=== PATIENT | female | born 1985 | race American Indian/Alaskan Native ===

== ENCOUNTER 2017-04-10 19:57 | Outpatient (CLI) | payer MEDICAID ==
[2017-04-10 20:15] VITALS: BP 119/64
[2017-04-10] MEDS ORDERED: LACTATED RINGERS 500 ML IV ONE (21:33)
== END 2017-04-10 21:35 | disposition home or self-care (01) ==
LOC: TRG 19:57
PROVIDERS: ATTEND Obstetrics & Gynecology
DX: O47.03 False labor before 37 completed weeks of gestation, third trimester (principal); Z3A.28 28 weeks gestation of pregnancy
CPT/HCPCS: 59025

== ENCOUNTER 2017-07-01 18:38 | Inpatient (IN) | payer MEDICAID ==
[2017-07-01] MEDS: LACTATED RINGERS 1,000 ML IV SCH ×2 (20:14→21:24)
[2017-07-01] MEDS ORDERED: POLYCILLIN/NS 2 GM/100 ML 2 GM/100 ML BAG IV ONE ×2 (20:54→21:00)
[2017-07-01] MEDS ORDERED: SUBLIMAZE IV ONE (21:01)
[2017-07-01] MEDS ORDERED: ePHEDrine SULFATE ONE (21:38)
[2017-07-01 21:39] LABS: Hemoglobin 10.6 gm/dl (10.1-14.3); Mean Corpuscular HGB Conc 32 % (30-34); Mean Corpuscular Hemoglobin 26 pg (28-32); Mean Corpuscular Volume 82 fl (79-97); Platelet Count 166 K/mm3 (140-440); Red Blood Count 4.04 M/mm3 (3.65-5.03); Red Cell Distribution Width 16.5 % (13.2-15.2)
[2017-07-01] MEDS ORDERED: PITOCin/NS 20 UNIT/1000ML DRIP 20,000 MILLIUNITS/1,000 ML BAG IV ONE (21:59)
[2017-07-01] MEDS ORDERED: LACTATED RINGERS 1,000 ML IV SCH (22:00)
[2017-07-01] MEDS ORDERED: XYLOCAINE 2% INFILTRATI ONE (22:05)
[2017-07-01] MEDS ORDERED: METHERGINE IM ONE ×2 (22:10→22:18)
--- NOTE | 2017-07-01 22:30 | Procedure Note ---
<JERRI GARBER - Last Filed: 07/01/17 22:25> OB Delivery Note - Delivery Date of Delivery: 07/01/17 Surgeon: JERRI GARBER Estimated blood loss: 300cc - Vaginal Delivery position: OA Delivery induction: none Delivery monitor: external FHT, external uterine Route of delivery: Delivery laceration: 2nd degree Delivery repair: vicryl Anesthesia: local Delivery comments: Called to standby for Dr. Catherine for delivery of this patient. She delivered at 2200 on 07/01/2017 female 7# 3 oz over 2 degree MLL. Meconium noted after SROM. Cord clamped and cut and baby passed to NICU staff over delivery. Repair done by Dr. Catherine. Methergine 0.2mg IM x one dose after delivery of placenta and fundal masssage. Placenta 3VCI. - Infant A at 1 minute: 8 at 5 minutes: 9 (7# 3 oz) <KIM CATHERINE - Last Filed: 07/01/17 22:36> OB Delivery Note - Vaginal Delivery comments: Large clots expressed after repair. IM pitocin given to help slow bleeding. Good hemostasis at the end of the procedure. - Infant A Infant Gender: Female (7 pounds 3 ounces)
[2017-07-01] MEDS: PITOCin/NS 20 UNIT/1000ML DRIP 20 UNITS/1,000 ML BAG IV SCH ×2 (22:33→23:20)
--- NOTE | 2017-07-01 22:50 | History and Physical Report ---
History of Present Illness Date of examination: 07/01/17 Date of admission: 07/01/17 20:52 Chief complaint: I'm in labor History of present illness: Patient is a 31 year old who presents to L&D in active labor. SHe receives care at [facility]. records are not available for review at this time. Past History - Obstetrical History Expected Date of Delivery: 07/03/17 Actual Gestation: 39 Week(s) 5 Day(s) : 5 Para: 1 Number of Living Children: 1 Medications and Allergies Allergies Allergy/AdvReac Type Severity Reaction Status Date / Time No Known Allergies Allergy Unverified 06/01/14 12:22 Home Medications Medication Instructions Recorded Confirmed Last Taken Type Nitrofurantoin [place]/M-Cryst 100 mg PO Q12HR #14 capsule 06/01/14 07/01/17 Unknown Rx [Macrobid] Ondansetron [Zofran Odt] 4 mg PO Q6H #20 tab.rapdis 06/01/14 07/01/17 Unknown Rx Pnv95/Ferrous Fumarate/FA 1 each PO QDAY #30 tablet 06/01/14 07/01/17 Unknown Rx [ Vitamins] Ferrous Sulfate [Feosol 325 MG tab] 325 mg PO BID #60 tablet 07/01/17 Unknown Rx HYDROcodone/ACETAMINOPHEN [[place] 1 each PO Q6H #20 tablet 07/01/17 Unknown Rx 5-325 Tablet] Ibuprofen [Motrin] 600 mg PO Q8H PRN #40 tablet 07/01/17 Unknown Rx Active Meds: Active Medications Lactated Ringer's (Lactated Ringers) 1,000 mls @ 125 mls/hr IV DIRECT MARA Oxytocin/Sodium Chloride (Pitocin/Ns 20 Unit/1000ml Drip) 20 units in 1,000 mls @ 0 mls/hr IV DIRECT MARA Last Admin: 07/01/17 22:33 Dose: 250 mls/hr Review of Systems All systems: negative Genitourinary: pelvic pain, contractions Rectal Exam: deferred - Vital Signs Vital signs: Vital Signs Temp 98.2 F 07/01/17 19:30 Temp Pulse Resp BP Pulse Ox 98.8 F 76 20 121/67 100 07/01/17 21:26 07/01/17 22:43 07/01/17 21:26 07/01/17 22:43 07/01/17 22:41 - Physical Exam Breasts: Positive: deferred Cardiovascular: Regular rate, Normal S1, Normal S2 Lungs: Positive: Clear to auscultation, Normal air movement Abdomen: Positive: normal appearance, soft, normal bowel sounds. Negative: distention, tenderness Genitourinary (Female): Positive: normal external genitalia, normal perenium Vulva: both: normal Vagina: Positive: normal moisture. Negative: discharge Cervix: Negative: lesion, discharge Uterus: Positive: normal size, normal contour Adnexa: both: normal Anus/Rectum: Positive: normal perianal skin, heme negative. Negative: rectal mass, hemorrhoids Extremities: Deep Tendon Reflex Grade: Normal +2 - Obstetrical FHR: auscultation normal Cervical Dilatation: 4 Cervical Effacement Percentage: 70 station: -2 Uterine Contraction Pattern: Regular Uterine Contraction Intensity: Moderate Results Result Diagrams: 07/01/17 21:15 Abnormal lab results 07/01/17 Range/Units 21:15 MCH 26 L (28-32) pg RDW 16.5 H (13.2-15.2) % All other labs normal. Assessment and Plan IUP at 39.5 weeks in active labor. Will try to treat for unknown GBS. Patient wants epidural. Anticipate .
[2017-07-01] MEDS ORDERED: XYLOCAINE 1% 20 mL INFILTRATI ONE (23:30)
[2017-07-01] MEDS ORDERED: PHENERGAN PO PRN (23:32)
[2017-07-01] MEDS ORDERED: LANSINOH TP PRN (23:32)
[2017-07-01] MEDS ORDERED: TYLENOL PO PRN (23:32)
[2017-07-01] MEDS ORDERED: TUCKS PAD TP PRN (23:32)
[2017-07-01] MEDS ORDERED: BENADRYL PO PRN (23:32)
[2017-07-01] MEDS ORDERED: SODIUM CHLORIDE FLUSH SYRINGE 10 ML IV PRN (23:32)
[2017-07-01] MEDS ORDERED: ZOFRAN IV PRN (23:32)
[2017-07-01] MEDS ORDERED: DULCOLAX PR PRN (23:32)
[2017-07-01] MEDS ORDERED: PITOCin/NS 20 UNIT/1000ML DRIP 20 UNITS/1,000 ML BAG IV SCH (23:32)
[2017-07-01] MEDS ORDERED: MILK OF MAGNESIA PO PRN (23:32)
[2017-07-01] MEDS ORDERED: PHENERGAN PR PRN (23:32)
[2017-07-02] MEDS: MOTRIN PO SCH ×3 (00:13→16:35)
[2017-07-02] MEDS: NORCO 5/325 PO PRN ×2 (05:27→16:37)
[2017-07-02] MEDS ORDERED: BOOSTRIX IM ONE (06:00)
[2017-07-02] MEDS: FEOSOL PO SCH ×2 (10:03→23:03)
[2017-07-02] MEDS: COLACE PO SCH ×2 (10:03→23:03)
[2017-07-02] MEDS: PRENATAL VITAMIN PO SCH (10:04)
[2017-07-02 11:06] LABS: Hematocrit 24.4 % (30.3-42.9); Hemoglobin 7.8 gm/dl (10.1-14.3)
[2017-07-02 12:58] LABS: Hepatitis C Virus Antibody Non-Reactive (NonReactive); Rubella IgG Antibody Immune (Immune)
[2017-07-03] MEDS: MOTRIN PO SCH ×2 (02:12→18:01)
[2017-07-03] MEDS: NORCO 5/325 PO PRN ×2 (02:12→08:57)
[2017-07-03] MEDS: FEOSOL PO SCH ×2 (08:58→21:58)
[2017-07-03] MEDS: COLACE PO SCH ×2 (08:58→21:59)
[2017-07-03] MEDS: PRENATAL VITAMIN PO SCH (08:59)
--- NOTE | 2017-07-03 11:58 | Progress Note ---
Assessment and Plan PPD 1 s/p , doing well. Infant on 48 hour hold due to unknown GBS. Will plan for discharge on tomorrow. Subjective - Subjective Date of service: 07/03/17 Interval history: Post day 1 s/p . Patient states bleeding is light. She is feeling well. Patient reports: appetite normal, voiding normally, pain well controlled, ambulating normally : doing well Objective - Vital Signs Latest vital signs: Vital Signs Temp Pulse Resp BP BP Pulse Ox 07/03/17 08:57 20 07/03/17 08:13 98.1 F 79 18 94/53 97 07/03/17 00:16 80 101/49 98 07/03/17 00:15 97.8 F 79 20 101/49 99 07/02/17 16:37 20 07/02/17 16:35 20 07/02/17 16:17 98.4 F 82 20 103/51 98 07/02/17 12:03 98.0 F 84 18 108/60 99 Intake and Output 07/02/17 07/03/17 07/03/17 22:59 06:59 14:59 Intake Total 600 360 360 Balance 600 360 360 Intake: Oral 600 360 240 Intake, Free Water 120 Other: Total, Intake Amount 240 120 240 # Voids Void 1 1 1 - Exam Breasts: Present: deferred Cardiovascular: Present: Regular rate, Normal S1, Normal S2 Lungs: Present: Clear to auscultation, Normal air movement Abdomen: Present: normal appearance, soft, normal bowel sounds Uterus: Present: normal, firm, fundal height below umbilicus Extremities: Present: normal Deep Tendon Reflex Grade: Normal +2
--- NOTE | 2017-07-03 12:01 | Discharge Summary ---
Providers - Providers Date of Admission: 07/01/17 20:52 Date of discharge: 07/04/17 Attending physician: JORDON GONZALEZ Primary care physician: JORDON GONZALEZ Hospitalization Reason for admission: active labor Delivery: Episiotomy: none Laceration: 2nd degree Other procedures: none complications: none Discharge diagnosis: IUP at term delivered baby: female Hospital course: unremarkable Condition at discharge: Good Disposition: DC-01 TO HOME OR SELFCARE Plan - Discharge Medications Prescriptions: Ferrous Sulfate [Feosol 325 MG tab] 325 mg PO BID #60 tablet HYDROcodone/ACETAMINOPHEN [[place] 5-325 Tablet] 1 each PO Q6H #20 tablet Ibuprofen [Motrin] 600 mg PO Q8H PRN #40 tablet PRN Reason: Pain - Provider Discharge Summary Activity: routine, no sex for 6 weeks, no heavy lifting 4 weeks, no strenuous exercise Diet: routine Instructions: routine Additional instructions: [] Smoking cessation referral if applicable(refer to patient education folder for contact #) [] Refer to [facility]'s [facility] Booklet Call your doctor immediately for: * Fever > 100.5 * Heavy vaginal bleeding ( >1 pad per hour) * Severe persistent headache * Shortness of breath * Reddened, hot, painful area to leg or breast * Drainage or odor from incision. * Keep incision clean and dry at all times and follow doctor's instructions regarding bathing/showering - Follow up plan Follow up: JORDON GONZALEZ MD [Primary Care Provider] - 6 Weeks Forms: [facility] Discharge Summary, Discharge Signature Page
[2017-07-04] MEDS: MOTRIN PO SCH ×2 (00:09→05:24)
[2017-07-04 09:48] VITALS: BP 100/61
[2017-07-04] MEDS: COLACE PO SCH (10:45)
[2017-07-04] MEDS: FEOSOL PO SCH (10:45)
[2017-07-04] MEDS: PRENATAL VITAMIN PO SCH (10:46)
== END 2017-07-04 12:06 | disposition home or self-care (01) | DRG 775 ==
LOC: TRG 18:38 → LD 20:52 → OB 23:32
PROVIDERS: ADMIT Obstetrics & Gynecology; ATTEND Obstetrics & Gynecology
PROC: 10E0XZZ Delivery of Products of Conception, External Approach (ICD-10-PCS; principal; 2017-07-01)
PROC: 0KQM0ZZ Repair Perineum Muscle, Open Approach (ICD-10-PCS; 2017-07-01)
DX: O77.0 Labor and delivery complicated by meconium in amniotic fluid (principal); O70.1 Second degree perineal laceration during delivery; Z37.0 Single live birth; Z3A.39 39 weeks gestation of pregnancy
CPT/HCPCS: 36415; 85014; 85018; 85027; 86592; 86706; 86762; 86803; 86850; 86900; 86901; 87806; 90471; 90715; 99211; G0463; J0290; J2210; J2590; J3010; J7120